=== PATIENT | female | born 1955 | race Caucasian/White ===

== ENCOUNTER → 2016-03-22 | Outpatient (CLI) | payer BC ==
--- NOTE | 2016-03-22 21:45 | US ---
EXAMINATION TYPE: US thyroid st tissue head/neck DATE OF EXAM: 03/22/2016 2:09 PM COMPARISON: NONE CLINICAL HISTORY: 60-year-old female E04.9 Nontoxic Goiter. Follow up thyroid nodules TECHNIQUE: Multiple sonographic images of the thyroid gland are obtained. FINDINGS: GLAND SIZE: Right Lobe: 5.9 x 2.1 x 2.4 cm Left Lobe: 5.8 x 1.9 x 1.7 cm Isthmus Thickness: 0.4 cm NODULES RIGHT: # of nodules measured on right: 4 1. 2.5 X 1.5 x 2.0 cm mixed nodule at the mid pole with well-defined margins; . This nodule is wid er than tall and shows intranodular vascularity. Prior size: 2.4 x 1.3 x 2.0 cm 2. 0.5 X 0.3 x 0.4 cm complex cystic nodule at the upper pole with well-defined margins; . This nod ule is wider than tall and shows no intranodular vascularity. Prior size: 0.5 x 0.5 x 0.4 cm 3. 0.8 X 0.5 x 0.6 cm hypoechoic nodule at the upper pole with poorly defined margins; . This nodul e is wider than tall and shows intranodular vascularity. Prior size: 0.7 x 0.3 x 0.6 cm 4. 1.3 X 0.7 x 0.9 cm mixed nodule at the lower pole with well-defined margins; . This nodule is wi lashonda than tall and shows intranodular vascularity. Prior size: 1.1 x 0.6 x 1.0 cm LEFT: # of nodules measured on left: 4 1. 0.6 X 0.6 x 0.5 cm mixed nodule at the lower pole with well-defined margins; . This nodule is w ider than tall and shows intranodular vascularity. Prior size: 0.7 x 0.7 x 0.6 cm 2. 1.3 X 0.8 x 1.1 cm mixed nodule at the lower pole with well-defined margins; . This nodule is wi lashonda than tall and shows intranodular vascularity. Prior size: 1.0 x 0.5 x 1.1 cm 3. 0.8 X 0.5 x 0.8 cm cystic nodule at the upper pole with well-defined margins. This nodule is wid er than tall and shows no intranodular vascularity. Prior size: 0.7 x 0.4 x 0.8 cm 4. 0.6 X 0.5 x 0.6 cm cystic nodule at the upper pole with well-defined margins; this nodule is wide r than tall and shows no intranodular vascularity. Prior size: 0.5 x 0.4 x 0.4 cm ISTHMUS: # of nodules measured in the isthmus: 0 TECHNOLOGIST NOTES: Bilateral neck scanned, no abnormal lymphadenopathy noted. Multiple thyroid nodu les noted as on prior exam IMPRESSION: Thyromegaly and multiple bilateral thyroid nodules measuring up to 2.5 cm on the right and 1.3 cm on the left overall not significantly changed. Correlate for multinodular goiter. A few of the nodules m ay have increased in 1 or 2 dimensions by a couple millimeters.
== END | disposition home or self-care (01) ==
LOC: RADUSWWP 13:38
PROVIDERS: ATTEND Family Medicine
DX: E04.2 Nontoxic multinodular goiter (principal)
CPT/HCPCS: 76536

== ENCOUNTER → 2017-01-10 | Outpatient (CLI) | payer BC ==
--- NOTE | 2017-01-10 13:18 | US ---
EXAMINATION TYPE: US thyroid st tissue head/neck DATE OF EXAM: 01/10/2017 COMPARISON: 03/22/2016 CLINICAL HISTORY: 61-year-old female E04.2 Nontoxic multinodular goiter. TECHNIQUE: Multiple sonographic images of the thyroid gland are obtained. FINDINGS: GLAND SIZE: Right Lobe: 4.8 x 2.3 x 2.1 cm Overall Parenchyma: heterogenous Left Lobe: 4.7 x 1.8 x 1.3 cm Overall Parenchyma: heterogeneous Isthmus Thickness: 0.3 cm NODULES RIGHT: # of nodules measured on right: 4 largest of multiple 1. 2.5 X 2.1 x 1.5 cm hypoechoic mixed nodule at the mid pole with well-defined margins; present wi th microcalcifications. This nodule is wider than tall and shows intranodular vascularity. Prior size: 2.5 x 2.0 x 1.5 cm 2. Radius number 2 nodule imaged but not recorded on this worksheet as larger cystic nodule in lower pole is measured as largest of 4 nodules seen. 3. 0.9 X 0.0.95 x 0.5 cm hypoechoic mixed nodule at the upper mid pole with poorly defined margins. This nodule is wider than tall and shows no intranodular vascularity. Prior size: 0.8 x 0.5 x 0.6 cm 4. 1.2 X 0.9 x 0.5 cm hypoechoic mixed nodule at the lower pole with well-defined margins. This nod ule is wider than tall and shows no intranodular vascularity. Prior size: 1.3 x 0.7 x 0.9 cm 5. 0.8 X 0.8 x 0.6 cm colloid cyst at the lower mid pole with well-defined margins; present with mi crocalcification. This nodule is wider than tall and shows no intranodular vascularity. Prior size: not previously measured LEFT: # of nodules measured on left: 4 largest of multiple 1. 0.8 X 0.8 x 0.6 cm hypoechoic mixed nodule at the mid pole with well-defined margins; present wi th microcalcifications. This nodule is wider than tall and shows no intranodular vascularity. Prior size: 0.6 x 0.6 x 0.5 cm 2. 1.3 X 1.0 x 0.7 cm hypoechoic mixed nodule at the lower pole with well-defined margins; present w ith microcalcifications. This nodule is wider than tall and shows no intranodular vascularity. Prior size: 1.3 x 1.1 x 0.8 cm 3. 0.9 X 0.96 x 0.5 cm cystic nodule at the upper pole with well-defined margins; interrupted periph eral calcification. This nodule is wider than tall and shows no intranodular vascularity. Prior size: 0.8 x 0.5 x 0.8 cm 4. 0.7 X 0.6 x 0.4 cm cystic nodule at the lower pole with well-defined margins. This nodule is wide r than tall and shows no intranodular vascularity. Prior size: 0.6 x 0.5 x 0.6 cm ISTHMUS: # of nodules measured in the isthmus: 0 Bilateral neck scanned, no evidence of lymphadenopathy. IMPRESSION: 1. Multinodular thyroid gland, largest nodule on the right measures 2.5 cm and is unchanged. 2. New 8 mm colloid cyst right lower pole. 3. Dominant nodule on the left is mixed solid and cystic measuring 1.3 cm and is unchanged. 4. A hypoechoic nodule in the left midpole measures 8 mm, has minimally increased in size from 6 mm, previously.
--- NOTE | 2017-01-12 09:33 | MM ---
Reason for exam: screening (asymptomatic). Last mammogram was performed 1 year and 11 months ago. History: Patient is postmenopausal. Physical Findings: A clinical breast exam by your physician is recommended on an annual basis and results should be correlated with mammographic findings. MG 3D Screening Mammo W/Cad Bilateral CC and MLO view(s) were taken. Prior study comparison: February 13, 2015, bilateral MG screening mammo w CAD. November 02, 2013, bilateral MG screening mammo w CAD. September 27, 2012, bilateral digital screening mammo w/CAD. The breast tissue is heterogeneously dense. This may lower the sensitivity of mammography. No significant changes when compared with prior studies. ASSESSMENT: Negative, BI-RAD 1 RECOMMENDATION: Routine screening mammogram of both breasts in 1 year.
== END | disposition home or self-care (01) ==
LOC: RADMAMWWP 08:03
PROVIDERS: ATTEND Family Medicine
DX: Z12.31 Encounter for screening mammogram for malignant neoplasm of breast (principal); E04.2 Nontoxic multinodular goiter
CPT/HCPCS: 77063; 76536; G0202

== ENCOUNTER → 2018-02-13 | Outpatient (CLI) | payer BC ==
--- NOTE | 2018-02-13 08:32 | US ---
EXAMINATION TYPE: US thyroid st tissue head/neck DATE OF EXAM: 02/13/2018 COMPARISON: US January 10, 2017 CLINICAL HISTORY: E04.2 Nontoxic multino. F/U GLAND SIZE: Right Lobe: 5.8 x 1.7 x 2.3 cm Overall Parenchyma: heterogenous Left Lobe: 5.2 x 1.6 x 1.6 cm Overall Parenchyma: heterogeneous Isthmus Thickness: 0.3 cm NODULES RIGHT: # of nodules measured on right: 1 1. 2.6 X 1.5 x 2.3 cm hypoechoic solid nodule at the mid pole with well-defined margins; This nodu le is wider than tall and shows intranodular vascularity. Prior size: 2.5 x 1.5 x 2.1 cm Multiple (too numerous to count), sub-centimeter nodules scattered throughout, some appear smaller in size when compared to previous LEFT: # of nodules measured on left: 2 1. 0.9 X 0.6 x 0.9 cm hypoechoic solid nodule at the lower pole with well-defined margins; This no dule is wider than tall and shows intranodular vascularity. Prior size: 1.3 x 0.7 x 1.0 cm 2. 0.9 X 0.5 x 0.97 cm cystic nodule at the upper pole with well-defined margins; This nodule is w ider than tall and shows no intranodular vascularity. Prior size: 0.9 x 0.5 x 0.96 cm Multiple (too numerous to count), sub-centimeter nodules scattered throughout Bilateral neck scanned, no evidence of lymphadenopathy. Stable nodules bilaterally with some decrease d in size. Heterogeneous mildly enlarged thyroid with innumerable scattered small nodules is redemonstrated. Dom inant right-sided nodule stable. No new greater than 1 cm nodules are present. IMPRESSION: Overall stable findings, no new suspicious nodularity is evident. Findings consistent with multinodul ar goiter redemonstrated.
--- NOTE | 2018-02-16 10:38 | MM ---
Reason for exam: screening (asymptomatic). Last mammogram was performed 1 year and 1 month ago. History: Patient is postmenopausal. Physical Findings: A clinical breast exam by your physician is recommended on an annual basis and results should be correlated with mammographic findings. MG 3D Screening Mammo W/Cad Bilateral CC and MLO view(s) were taken. Prior study comparison: January 10, 2017, bilateral MG 3d screening mammo w/cad. February 13, 2015, bilateral MG screening mammo w CAD. The breast tissue is heterogeneously dense. This may lower the sensitivity of mammography. There is no discrete abnormality. No significant changes when compared with prior studies. ASSESSMENT: Negative, BI-RAD 1 RECOMMENDATION: Routine screening mammogram of both breasts in 1 year.
== END | disposition home or self-care (01) ==
LOC: RADMAMWWP 07:09
PROVIDERS: ATTEND Family Medicine
DX: Z12.31 Encounter for screening mammogram for malignant neoplasm of breast (principal); E04.2 Nontoxic multinodular goiter
CPT/HCPCS: 76536; 77063; 77067

== ENCOUNTER → 2019-04-03 | Outpatient (CLI) | payer BC ==
--- NOTE | 2019-04-03 08:42 | US ---
EXAMINATION TYPE: US thyroid st tissue head/neck DATE OF EXAM: 04/03/2019 COMPARISON: NONE CLINICAL HISTORY: E04.2 goiter. GLAND SIZE: Right Lobe: 6.3 x 1.8 x 2.0 cm Overall Parenchyma: heterogenous Left Lobe: 5.6 x1.3 x 1.9 cm Overall Parenchyma: heterogeneous Isthmus Thickness: 0.3 cm NODULES RIGHT: # of nodules measured on right: 1 1. 2.9 X 1.6 x 2.0 cm hypoechoic mixed nodule at the mid pole with well-defined margins. This nodu le is wider than tall and shows intranodular vascularity. Prior size: 2.6 x 1.5 x 2.3 cm LEFT: # of nodules measured on left: 2 1. 1.0 X 0.6 x 1.0 cm anechoic cystic nodule at the upper pole with well-defined margins. This nod ule is wider than tall and shows no intranodular vascularity. Prior size: x x cm 2. 0.7 X 0.6 x 0.9 cm hypoechoic mixed nodule at the mid pole with well-defined margins. This nodul e is wider than tall and shows intranodular vascularity. Prior size: 0.9 x 0.5 x 1.0 cm ISTHMUS: # of nodules measured in the isthmus: 0 Bilateral neck scanned, no evidence of lymphadenopathy. Multiple (too numerous to count), sub-centimeter nodules scattered throughout. IMPRESSION: 1. Thyroidomegaly. 2. Multiple nonspecific nodules discussed.
--- NOTE | 2019-04-04 10:38 | MM ---
Reason for exam: screening (asymptomatic). Last mammogram was performed 1 year and 2 months ago. History: Patient is postmenopausal. Physical Findings: A clinical breast exam by your physician is recommended on an annual basis and results should be correlated with mammographic findings. MG 3D Screening Mammo W/Cad Bilateral CC and MLO view(s) were taken. Prior study comparison: February 13, 2018, bilateral MG 3d screening mammo w/cad. January 10, 2017, bilateral MG 3d screening mammo w/cad. The breast tissue is heterogeneously dense. This may lower the sensitivity of mammography. No suspicious abnormality. No significant changes when compared with prior studies. ASSESSMENT: Negative, BI-RAD 1 RECOMMENDATION: Routine screening mammogram of both breasts in 1 year.
== END | disposition home or self-care (01) ==
LOC: RADUSWWP 07:08
PROVIDERS: ATTEND Family Medicine
DX: Z12.31 Encounter for screening mammogram for malignant neoplasm of breast (principal); E04.2 Nontoxic multinodular goiter
CPT/HCPCS: 76536; 77063; 77067

== ENCOUNTER → 2020-07-14 | Outpatient (CLI) | payer BC ==
--- NOTE | 2020-07-14 12:32 | US ---
EXAMINATION TYPE: US thyroid st tissue head/neck DATE OF EXAM: 07/14/2020 COMPARISON: 04/03/2019 CLINICAL HISTORY: E04.2 nontoxic multinodular goiter. Follow up GLAND SIZE: Right Lobe: 6.1 x 1.8 x 2.4 cm Overall Parenchyma: heterogenous Left Lobe: 5.5 x 1.6 x 1.6 cm Overall Parenchyma: heterogeneous Isthmus Thickness: 0.3 cm NODULES RIGHT: # of nodules measured on right: 1 1. 2.7 X 1.4 x 2.1 cm, mid , mixed, hypoechoic nodule, which is wider than tall, with smooth margin s, with echogenic foci. Prior size: 2.6 x 1.6 x 2.0 cm LEFT: # of nodules measured on left: 2 1. 1.1 X 0.7 x 1.0 cm, upper , cystic, hypoechoic nodule, which is wider than tall, with smooth mar gins, with echogenic foci. This is suggestive of a colloid cyst. Prior size: 1.0 x 0.6 x 1.0 cm 2. 0.7 X 0.6 x 0.6 cm, mid, mixed, hypoechoic nodule, which is wider than tall, with smooth margin s, without echogenic foci. Prior size: 0.7 x 0.6 x 0.9 cm ISTHMUS: # of nodules measured in the isthmus: 0 Bilateral neck scanned, no evidence of lymphadenopathy. Multiple thyroid nodules noted bilaterally, 1 nodule measured right lobe and 2 left lobe as on prior exam IMPRESSION: 1. Thyromegaly. Multiple bilateral thyroid nodules are relatively unchanged since prior exam. 2. There is a 2.7 cm hypoechoic, predominantly solid thyroid nodule in the right lobe with echogenic foci. This is suggestive of a tI-RADS 5 nodule. This is similar in size to prior exam however ultraso und-guided biopsy is recommended. This appears more solid than prior study. 2017 ACR TI-RADS LEVEL: 5 *Highest TI-RADS level nodule reported
--- NOTE | 2020-07-15 09:41 | MM ---
Reason for exam: screening (asymptomatic). Last mammogram was performed 1 year and 3 months ago. History: Patient is postmenopausal. Physical Findings: A clinical breast exam by your physician is recommended on an annual basis and results should be correlated with mammographic findings. MG 3D Screening Mammo W/Cad Bilateral CC and MLO view(s) were taken. Prior study comparison: April 03, 2019, bilateral MG 3d screening mammo w/cad. February 13, 2018, bilateral MG 3d screening mammo w/cad. The breast tissue is heterogeneously dense. This may lower the sensitivity of mammography. There is no discrete abnormality. No significant changes when compared with prior studies. ASSESSMENT: Negative, BI-RAD 1 RECOMMENDATION: Routine screening mammogram of both breasts in 1 year.
== END | disposition home or self-care (01) ==
LOC: RADMAMWWP 07:41
PROVIDERS: ATTEND Family Medicine
DX: Z12.31 Encounter for screening mammogram for malignant neoplasm of breast (principal); E04.2 Nontoxic multinodular goiter; Z78.0 Asymptomatic menopausal state
CPT/HCPCS: 76536; 77063; 77067

== ENCOUNTER 2020-10-13 12:11 | Day surgery (SDC) | payer BC ==
[2020-10-13 12:50] VITALS: TEMP 98.4
--- NOTE | 2020-10-13 13:42 | US ---
ULTRASOUND GUIDED FNA THYROID BIOPSY: CLINICAL HISTORY: Right thyroid nodule FINDINGS: The procedure was explained to the patient. The risks, complications, benefits and alternatives were discussed and any questions were answered. Informed consent was obtained. Patient was placed supin e on the ultrasound table and prepped and draped in the usual sterile fashion. Utilizing a 25 gauge needle, five passes were made into the requested right thyroid nodule. Patient was stable throughout the procedure. Pathology is pending. All elements of maximal barrier technique were utilized. IMPRESSION: 1. Successful ultrasound guided FNA thyroid biopsy.
[2020-10-13 13:45] VITALS: RESP 14
[2020-10-13 13:46] VITALS: BP 126/86; PULSE 91
== END 2020-10-13 13:42 | disposition home or self-care (01) ==
LOC: RADPROMAIN 12:11
PROVIDERS: ATTEND Otolaryngology
DX: E04.1 Nontoxic single thyroid nodule (principal)
CPT/HCPCS: 10005; 88173; 88305

== ENCOUNTER → 2021-07-29 | Outpatient (CLI) | payer BC ==
--- NOTE | 2021-07-30 18:23 | MM ---
Reason for Exam: Screening (asymptomatic). Last mammogram was performed 1 year(s) and 1 month(s) ago. Patient History: Menarche at age 13. First Full-Term at age 26. Postmenopausal. Risk Values: Candis 5 year model risk: 1.8%. NCI Lifetime model risk: 7.2%. Prior Study Comparison: 02/13/2018 Bilateral Screening Mammogram, [facility]. 04/03/2019 Bilateral Screening Mammogram, [facility]. 07/14/2020 Bilateral Screening Mammogram, [facility]. Tissue Density: The breast tissue is heterogeneously dense. This may lower the sensitivity of mammography. Findings: Analyzed By CAD. No suspicious groups of microcalcifications, spiculated or lobular masses, Architectural distortion or other secondary signs of malignancy are mammographically apparent. Overall Assessment: Benign, BI-RAD 2 Management: Screening Mammogram of both breasts in 1 year. A negative mammogram report should not preclude additional follow up of suspicious palpable abnormalities. Patient should continue monthly self breast exam. A clinical breast exam by your physician is recommended on an annual basis and results should be correlated with mammographic findings. Electronically signed and approved by: Bucky John D.O. Radiologis
== END | disposition home or self-care (01) ==
LOC: RADMAMWWP 07:16
PROVIDERS: ATTEND Family Medicine
DX: Z12.31 Encounter for screening mammogram for malignant neoplasm of breast (principal); Z78.0 Asymptomatic menopausal state
CPT/HCPCS: 77063; 77067

== ENCOUNTER → 2022-09-28 | Outpatient (CLI) | payer MEDICARE, BC ==
--- NOTE | 2022-09-28 23:45 | MR ---
EXAMINATION TYPE: MR cervical spine wo con DATE OF EXAM: 09/28/2022 INDICATION: Patient age: Female; 66 years old; Reason for study: M54.12; PHH. Tingling in rt hand/fingers COMPARISON: None . TECHNIQUE: Multi planar, multi sequence imaging was performed utilizing: T1-weighted, T2-weighted, an d turbo inversion recovery imaging of the cervical spine. IV Contrast: None FINDINGS: Alignment: The cervical vertebral bodies have preserved heights. Alignment is within normal limits gi sujatha patient positioning. Bones: Scattered Modic endplate changes with osteophytes and disc space narrowing. Multilevel degener ative disc disease is noted and most pronounced at the C5-C7 vertebral levels. Cord: The spinal cord is unremarkable with regards to their signal intensity and morphology. Discs: Intervertebral disc signal is maintained. C2-C3: No significant disc pathology. The spinal canal is patent. No neural foraminal stenosis. C3-C4: No significant disc pathology. The spinal canal is patent. Bilateral facet and uncovertebral joint arthropathy are present with mild bilateral neural foraminal stenosis. C4-C5: No significant disc pathology. The spinal canal is patent. Bilateral facet and uncovertebral joint arthropathy are present with mild bilateral neural foraminal stenosis. C5-C6: A disc osteophyte complex is present with mild spinal canal stenosis. Bilateral facet and unc overtebral joint arthropathy are present with mild to moderate bilateral neural foraminal stenosis. C6-C7: A disc osteophyte complex is present with mild spinal canal stenosis. Bilateral facet and unc overtebral joint arthropathy are present with moderate bilateral neural foraminal stenosis. C7-T1: No significant disc pathology. The spinal canal is patent. No neural foraminal stenosis. Other: None. IMPRESSION: 1. No evidence for disc herniation or significant spinal canal stenosis. 2. 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
== END | disposition home or self-care (01) ==
LOC: RADMRIMAIN 07:20
PROVIDERS: ATTEND Family Medicine
DX: M50.123 Cervical disc disorder at C6-C7 level with radiculopathy (principal); M99.71 Connective tissue and disc stenosis of intervertebral foramina of cervical region; M47.22 Other spondylosis with radiculopathy, cervical region
CPT/HCPCS: 72141

== ENCOUNTER → 2022-10-05 | Outpatient (CLI) | payer MEDICARE, BC ==
--- NOTE | 2022-10-06 12:58 | MM ---
Reason for Exam: Screening (asymptomatic). Last mammogram was performed 1 year(s) and 2 month(s) ago. Patient History: Menarche at age 13. First Full-Term at age 26. Postmenopausal. Patient has history of breast feeding. Risk Values: Candis 5 year model risk: 1.8%. NCI Lifetime model risk: 6.9%. Prior Study Comparison: 04/03/2019 Bilateral Screening Mammogram, [facility]. 07/14/2020 Bilateral Screening Mammogram, [facility]. 07/29/2021 Bilateral MG 3D screening mammo w/cad, [facility]. Tissue Density: The breast tissue is heterogeneously dense. This may lower the sensitivity of mammography. Findings: Analyzed By CAD. Pattern appears symmetrical and stable. No significant interval changes are evident. No suspicious groups of microcalcifications, spiculated or lobular masses, architectural distortion or other secondary signs of malignancy are mammographically apparent. Overall Assessment: Benign, BI-RAD 2 Management: Screening Mammogram of both breasts in 1 year. A negative mammogram report should not preclude additional follow up of suspicious palpable abnormalities. Patient should continue monthly self breast exam. A clinical breast exam by your physician is recommended on an annual basis and results should be correlated with mammographic findings. Electronically signed and approved by: Bucky John D.O. Radiologis
== END | disposition home or self-care (01) ==
LOC: RADMAMWWP 07:15
PROVIDERS: ATTEND Family Medicine
DX: Z12.31 Encounter for screening mammogram for malignant neoplasm of breast (principal); Z78.0 Asymptomatic menopausal state
CPT/HCPCS: 77063; 77067

== ENCOUNTER → 2023-10-07 | Outpatient (CLI) | payer MEDICARE, BC ==
--- NOTE | 2023-10-21 14:22 | MM ---
Reason for Exam: Screening (asymptomatic). Last screening mammogram was performed 12 month(s) ago. Patient History: Menarche at age 13. First Full-Term at age 26. Postmenopausal. Patient has history of breast feeding. Risk Values: Candis 5 year model risk: 1.9%. NCI Lifetime model risk: 6.7%. Prior Study Comparison: 07/14/2020 Bilateral Screening Mammogram, [facility]. 07/29/2021 Bilateral MG 3D screening mammo w/cad, [facility]. 10/05/2022 Bilateral MG 3D screening mammo w/cad, [facility]. Tissue Density: There are scattered areas of fibroglandular density. Findings: Analyzed By CAD. Right breast: There is no suspicious group of microcalcifications or new suspicious mass. Left breast: There is no suspicious group of microcalcifications or new suspicious mass. Overall Assessment: Negative, BI-RAD 1 Management: Screening Mammogram of both breasts in [address] [facility] will attempt to contact patient to return for supplemental views and ultrasound if indicated. Patient should continue monthly self-breast exams. A clinical breast exam by your physician is recommended on an annual basis. This exam should not preclude additional follow-up of suspicious palpable abnormalities. Note on Candis scores and lifetime risk: 1. A Candis score greater than 3% is considered moderate risk. If this is the case, consider specialist referral to assess eligibility for a risk reducing agent. 2. If overall lifetime risk for the development of breast cancer is 20% or higher, the patient may qualify for future screening with alternating mammogram and breast MRI. Electronically signed and approved by: Malcolm Hadley DO
--- NOTE | 2023-10-31 15:48 | MR ---
Patient: Anushka Kong L Ordering Physician: Unknown, Unknown ID: [id number] Phone, Pager: Phone: N /A Pager: N/A : [phone] Age/Gender: 67Y, F Primary Location: N/A Procedure: MRI RT SHOULDER WO Study Date: 10/07/2023 5:14:59 AM Order #: N/A EXAMINATION TYPE: MR shoulder RT wo con DATE OF EXAM: 10/07/2023 COMPARISON: NONE HISTORY: Pain for 10 months with difficulty raising arm overhead TECHNIQUE: Multiplanar, multisequence imaging of the right shoulder is performed without contrast. FINDINGS: Rotator Cuff: Increased signal in the supraspinatus and infraspinatus tendons. Focal articular surfac e tear supraspinatus tendon measuring 7 mm AP diameter sagittal image 25 x 4 mm transversely coronal image 9. Heterogeneous subscapularis tendon. Anterior fluid noted. Rotator cuff muscle bulk is mainta ined. Acromioclavicular Joint: Moderate narrowing and capsular hypertrophy. Mild spurring acromioclavicular joint. Glenohumeral Joint: Small joint effusion. No significant spurring. Labrum: Increased signal superior labrum consistent with degenerative tear. Biceps Tendon: The long head of biceps is in normal location within bicipital groove. Increased signa l intracapsular portion. Bone marrow signal: No focal abnormal marrow signal is appreciated. Other: No additional significant abnormality is appreciated. IMPRESSION: 1. Tendinosis of the subscapularis and infraspinatus tendons. Tendinosis/partial tearing of the supra spinatus tendon. 2. Superior labral tear. 3. Moderate degenerative changes as detailed above. 4. Tendinosis/partial tearing of the long head of biceps tendon.
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
== END | disposition home or self-care (01) ==
LOC: RADMAMWWP 10:33
PROVIDERS: ATTEND Family Medicine
DX: Z12.31 Encounter for screening mammogram for malignant neoplasm of breast (principal); S46.011A Strain of muscle(s) and tendon(s) of the rotator cuff of right shoulder, initial encounter; E04.2 Nontoxic multinodular goiter; M67.813 Other specified disorders of tendon, right shoulder; Z78.0 Asymptomatic menopausal state; R92.323 Mammographic fibroglandular density, bilateral breasts
CPT/HCPCS: 76536; 77063; 77067

== ENCOUNTER → 2024-03-12 | Outpatient (CLI) | payer MEDICARE ==
[2024-03-12 15:07] LABS: Chol/HDL Ratio 3.71 Ratio; Creatine Kinase 61 U/L (26-186); LDL Cholesterol,Calculated 72.7 mg/dL (0.0-131.0)
== END | disposition home or self-care (01) ==
LOC: LABWHC1 08:05
PROVIDERS: ATTEND Family Medicine
DX: E78.5 Hyperlipidemia, unspecified (principal)
CPT/HCPCS: 36415; 80061; 82550

== ENCOUNTER → 2024-04-13 | Day surgery (SDC) | payer MEDICARE, OTHER ==
[2024-04-12 11:10] VITALS: BMI 24.7
[~2024-04-13] MED LIST: PROPOFOL 10 MG/ML 20 ML VIAL IV ONE
[2024-04-13 08:15] VITALS: RESP 16; TEMP 97.9
[2024-04-13] MEDS: IV FLUID CONTINUATION 1,000 ML IV ONE (08:17)
[2024-04-13] MEDS: LACTATED RINGERS 1,000 ML IV SCH (08:17)
--- NOTE | 2024-04-13 08:52 | P.PCN ---
Date of Procedure: 04/13/24 Procedure(s) Performed: BRIEF HISTORY: Patient is a 68-year-old pleasant white female scheduled for an elective colonoscopy as a part of screening for colon cancer. Her last colonoscopy was 10 years ago. PROCEDURE PERFORMED: Colonoscopy with snare polypectomy. PREOPERATIVE DIAGNOSIS: Screening for colon cancer. IV sedation per Anesthesia. PROCEDURE: After informed consent was obtained, the patient, was brought into the endoscopy unit. IV sedation was administered by Anesthesia under continuous monitoring. Digital rectal examination was normal. Initially the Olympus CF-160 flexible video colonoscope was then inserted in the rectum, gradually advanced into the cecum without any difficulty. Careful examination was performed as the scope was gradually being withdrawn. Ileocecal valve and the appendiceal orifice were visualized and appeared normal. Prep was excellent. Mucosa of the cecum, a scending colon, transverse colon, descending colon, sigmoid colon, and rectum appeared normal. Proximal rectum there was a 5 mm polyp that was removed by cold snare polypectomy. Scattered sigmoid diverticulosis seen. Retroflexion was performed in the rectum and no lesions were seen. The patient tolerated the procedure well. IMPRESSION: 5 mm rectal polyp status post cold snare polypectomy Scattered sigmoid diverticulosis RECOMMENDATIONS: Findings of this examination were discussed with the patient as well as her family. She was advised to follow-up with the biopsy results. If the biopsy reveals adenoma she can have a colonoscopy in 5 years..
[2024-04-13 09:29] VITALS: BP 104/69; PULSE 84
== END ==
LOC: ORWHC2ENDO 07:43
PROVIDERS: ATTEND Internal Medicine Gastroenterology
DX: Z12.11 Encounter for screening for malignant neoplasm of colon (principal); K57.30 Diverticulosis of large intestine without perforation or abscess without bleeding; D12.7 Benign neoplasm of rectosigmoid junction; K62.1 Rectal polyp
CPT/HCPCS: 45385; J2704; 88305